=== PATIENT | female | born 1950 | race Hispanic/Latino ===

== ENCOUNTER 2018-01-14 08:01 | Inpatient (IN) | payer OTHER ==
[~2018-01-14] VITALS: Ht 144.8 cm; Wt 117.0 kg
[~2018-01-14 08:01] MED LIST: LISI-617 PO; METF-444 PO; [UNRECOGNIZED DRUG - CODE] PO
[2018-01-14 08:50] LABS: BASOPHILS % (AUTO) 0.5 % (0.0-5.0); EOSINOPHILS % (AUTO) 0.4 % (0.0-8.0); HEMATOCRIT 42.6 % (36-48); LYMPHOCYTES % (AUTO) 16.7 % (21.0-51.0); MEAN CORPUSCULAR HEMOGLOBIN 32.2 pg (27.0-33.0); MEAN CORPUSCULAR HGB CONC 33.4 g/dL (32.0-36.0); MEAN CORPUSCULAR VOLUME 96.5 fL (79-99); MONOCYTES % (AUTO) 6.1 % (3.0-13.0); NEUTROPHILS % (AUTO) 76.3 % (40.0-77.0); PLATELET COUNT (AUTO) 276 K/uL (130-400); RED BLOOD CELL COUNT(AUTO) 4.42 MIL/uL (4.00-5.50); RED CELL DISTRIBUTION WIDTH 13.9 % (11.0-15.5)
[2018-01-14 09:03] LABS: CREATININE 0.7 mg/dL (0.5-1.5); POTASSIUM 4.3 mmol/L (3.5-5.1)
[2018-01-14 09:10] LABS: ALBUMIN 3.7 g/dL (3.5-5.0); BILIRUBIN,TOTAL 0.7 mg/dL (0.2-1.0); TOTAL PROTEIN, SERUM 7.8 g/dL (6.0-8.3)
[2018-01-14] MEDS ORDERED: DICYCLOMINE HCL 10 MG/ML 2ML AMP IM ONE (09:30)
[2018-01-14 09:34] LABS: APPEARANCE,URINE Clear (CLEAR); BILIRUBIN,URINE Negative (NEGATIVE); COLOR,URINE Yellow (YELLOW); GLUCOSE, URINE (UA) Negative (NEGATIVE); KETONES,URINE Negative (NEGATIVE); LEUKOCYTE ESTERASE ,URINE Trace (NEGATIVE); NITRATE,URINE Negative (NEGATIVE); OCCULT BLOOD,URINE Negative (NEGATIVE); PROTEIN,URINE Negative (NEGATIVE)
[2018-01-14 10:02] LABS: BACTERIA,URINE Few /HPF (None Seen); RBC,URINE 0-1 /HPF (0-1); SQUAMOUS EPITHELIAL CELL,UR Rare /HPF (0-2); WBC,URINE 0-1 /HPF (0-1)
[2018-01-14] MEDS ORDERED: FAMOTIDINE/PF 20 MG/2 ML VIAL IV SCH (11:05)
[2018-01-14] MEDS ORDERED: LIDOCAINE HCL 2% VISCOUS 15 ML UDCUP ONE (11:21)
[2018-01-14 11:53] VITALS: BP 158/82
[2018-01-14] MEDS ORDERED: ONDANSETRON HCL 4 MG/2 ML VIAL IV PRN (13:30)
[2018-01-14] MEDS ORDERED: MORPHINE SULFATE 2 MG/ML 1ML SYG IV PRN (13:30)
[2018-01-14] MEDS ORDERED: ACETAMINOPHEN 325 MG TAB PO PRN (13:30)
[2018-01-14] MEDS: SODIUM CHLORIDE 0.9% 1000ML 1,000 ML IV SCH ×2 (13:49→22:52)
[2018-01-14] MEDS: LEVOFLOXACIN 500 MG/D5W 100 ML 100 ML IV SCH (13:49)
[2018-01-14] MEDS ORDERED: METRONIDAZOLE 500 MG TABLET PO SCH (14:00)
[2018-01-14] MEDS ORDERED: ALEN70SO3 PO (14:03)
[2018-01-14 15:34] VITALS: BP 131/70
[2018-01-14] MEDS: KETOROLAC TROMETHAMINE 15MG/ML IM PRN ×2 (17:35→22:59)
[2018-01-14 19:00] VITALS: BP 122/70
[2018-01-14] MEDS: METRONIDAZOLE 500MG/100ML BAG 100 ML IV SCH (22:53)
[2018-01-14] MEDS: FAMOTIDINE/PF 20 MG/2 ML VIAL IV SCH (22:53)
[2018-01-14 23:00] VITALS: BP 126/74
[2018-01-14] MEDS ORDERED: KETOROLAC TROMETHAMINE 15MG/ML IV PRN (23:15)
[2018-01-15 03:00] VITALS: BP 131/71
[2018-01-15 04:34] LABS: HEMATOCRIT 36.7 % (36-48); MEAN CORPUSCULAR HEMOGLOBIN 32.8 pg (27.0-33.0); MEAN CORPUSCULAR HGB CONC 33.9 g/dL (32.0-36.0); MEAN CORPUSCULAR VOLUME 96.7 fL (79-99); PLATELET COUNT (AUTO) 283 K/uL (130-400); RED BLOOD CELL COUNT(AUTO) 3.79 MIL/uL (4.00-5.50); RED CELL DISTRIBUTION WIDTH 13.8 % (11.0-15.5); WHITE BLOOD COUNT (AUTO) 11.1 K/uL (4.8-10.8)
[2018-01-15 04:48] LABS: ALBUMIN 2.9 g/dL (3.5-5.0); BILIRUBIN,TOTAL 0.7 mg/dL (0.2-1.0); CREATININE 0.6 mg/dL (0.5-1.5); MAGNESIUM 1.9 mg/dL (1.80-2.40); PHOSPHORUS 3.4 mg/dL (2.5-4.9); POTASSIUM 3.9 mmol/L (3.5-5.1); TOTAL PROTEIN, SERUM 6.2 g/dL (6.0-8.3)
[2018-01-15] MEDS: METRONIDAZOLE 500MG/100ML BAG 100 ML IV SCH ×3 (05:35→22:23)
[2018-01-15 07:00] VITALS: BP 149/62
[2018-01-15] MEDS: FAMOTIDINE/PF 20 MG/2 ML VIAL IV SCH ×2 (09:38→22:23)
[2018-01-15] MEDS: ENOXAPARIN SODIUM 40 MG/0.4 ML SYRINGE SQ SCH (09:39)
[2018-01-15] MEDS: LISINOPRIL 5 MG TABLET PO SCH (09:39)
[2018-01-15] MEDS: SODIUM CHLORIDE 0.9% 1000ML 1,000 ML IV SCH ×2 (09:39→13:30)
[2018-01-15 11:03] VITALS: BP 121/67
[2018-01-15] MEDS: LEVOFLOXACIN 500 MG/D5W 100 ML 100 ML IV SCH (15:38)
[2018-01-15 16:04] VITALS: BP 117/62
[2018-01-15 19:32] VITALS: BP 126/66
[2018-01-15 23:50] VITALS: BP 126/70
[2018-01-16 03:43] VITALS: BP 112/52
[2018-01-16] MEDS: METRONIDAZOLE 500MG/100ML BAG 100 ML IV SCH (05:14)
[2018-01-16] MEDS: SODIUM CHLORIDE 0.9% 1000ML 1,000 ML IV SCH (05:30)
[2018-01-16 05:44] LABS: BASOPHILS % (AUTO) 0.6 % (0.0-5.0); EOSINOPHILS % (AUTO) 1.8 % (0.0-8.0); HEMATOCRIT 36.6 % (36-48); LYMPHOCYTES % (AUTO) 22.8 % (21.0-51.0); MEAN CORPUSCULAR HEMOGLOBIN 32.3 pg (27.0-33.0); MEAN CORPUSCULAR HGB CONC 33.2 g/dL (32.0-36.0); MEAN CORPUSCULAR VOLUME 97.2 fL (79-99); MONOCYTES % (AUTO) 9.6 % (3.0-13.0); NEUTROPHILS % (AUTO) 65.2 % (40.0-77.0); PLATELET COUNT (AUTO) 246 K/uL (130-400); RED BLOOD CELL COUNT(AUTO) 3.77 MIL/uL (4.00-5.50); WHITE BLOOD COUNT (AUTO) 8.7 K/uL (4.8-10.8)
[2018-01-16 05:49] LABS: CREATININE 0.7 mg/dL (0.5-1.5); POTASSIUM 3.4 mmol/L (3.5-5.1)
[2018-01-16 08:07] VITALS: BP_SYST 114; BP_SYST 133; BP_DIAS 63; BP_DIAS 64
[2018-01-16] MEDS: LISINOPRIL 5 MG TABLET PO SCH (09:49)
[2018-01-16] MEDS: DOCUSATE SODIUM 100 MG CAP PO SCH (09:50)
[2018-01-16] MEDS: ENOXAPARIN SODIUM 40 MG/0.4 ML SYRINGE SQ SCH (09:51)
[2018-01-16 11:14] VITALS: BP 100/56
[2018-01-16] MEDS ORDERED: METRONIDAZOLE 500 MG TABLET ONE (11:20)
[2018-01-16] MEDS: METRONIDAZOLE 500 MG TABLET PO SCH ×2 (11:31→19:24)
[2018-01-16] MEDS ORDERED: FAMOTIDINE 20MG TAB 20 MG TAB ONE (11:59)
[2018-01-16] MEDS: LEVOFLOXACIN 500 MG TABLET PO SCH (12:03)
[2018-01-16 15:00] VITALS: BP 153/73
[2018-01-16 19:19] VITALS: BP 128/62
[2018-01-16] MEDS: FAMOTIDINE 20MG TAB 20 MG TAB PO SCH (22:24)
[2018-01-16 23:30] VITALS: BP 119/60
[2018-01-17 03:48] VITALS: BP 120/66
[2018-01-17 04:40] LABS: BASOPHILS % (AUTO) 0.4 % (0.0-5.0); EOSINOPHILS % (AUTO) 2.3 % (0.0-8.0); HEMATOCRIT 36.2 % (36-48); LYMPHOCYTES % (AUTO) 25.1 % (21.0-51.0); MEAN CORPUSCULAR HEMOGLOBIN 32.9 pg (27.0-33.0); MEAN CORPUSCULAR HGB CONC 33.7 g/dL (32.0-36.0); MEAN CORPUSCULAR VOLUME 97.6 fL (79-99); MONOCYTES % (AUTO) 8.8 % (3.0-13.0); NEUTROPHILS % (AUTO) 63.4 % (40.0-77.0); PLATELET COUNT (AUTO) 274 K/uL (130-400); RED BLOOD CELL COUNT(AUTO) 3.71 MIL/uL (4.00-5.50); RED CELL DISTRIBUTION WIDTH 13.9 % (11.0-15.5); WHITE BLOOD COUNT (AUTO) 7.5 K/uL (4.8-10.8)
[2018-01-17 04:51] LABS: CREATININE 0.8 mg/dL (0.5-1.5); POTASSIUM 3.6 mmol/L (3.5-5.1)
[2018-01-17] MEDS: METRONIDAZOLE 500 MG TABLET PO SCH ×2 (05:13→12:37)
[2018-01-17 07:34] VITALS: BP 115/64
[2018-01-17] MEDS: LISINOPRIL 5 MG TABLET PO SCH (09:08)
[2018-01-17] MEDS: DOCUSATE SODIUM 100 MG CAP PO SCH (09:09)
[2018-01-17] MEDS: FAMOTIDINE 20MG TAB 20 MG TAB PO SCH (09:09)
[2018-01-17] MEDS: ENOXAPARIN SODIUM 40 MG/0.4 ML SYRINGE SQ SCH (09:11)
[2018-01-17] MEDS ORDERED: LACTULOSE 20 GM/30 ML UDCUP PO PRN (11:00)
[2018-01-17 11:21] VITALS: BP 141/66
[2018-01-17] MEDS: LEVOFLOXACIN 500 MG TABLET PO SCH (12:38)
[2018-01-17] MEDS ORDERED: LEVO500T2 PO (15:44)
[2018-01-17 15:53] VITALS: BP 117/56
[2018-01-18] MEDS ORDERED: ALENDRONATE SODIUM 35 MG TAB PO SCH (06:30)
== END 2018-01-17 19:13 | disposition home or self-care (01) | DRG 389 ==
LOC: EDH 08:01 → EDHIP 10:43 → 3AH 11:29
PROVIDERS: ADMIT Hospitalist; ATTEND Hospitalist
PROC: 0D9670Z Drainage of Stomach with Drainage Device, Via Natural or Artificial Opening (ICD-10-PCS; principal; 2018-01-15)
PROC: 3E0234Z Introduction of Serum, Toxoid and Vaccine into Muscle, Percutaneous Approach (ICD-10-PCS; 2018-01-16)
DX: K56.600 Partial intestinal obstruction, unspecified as to cause (principal); Z68.43 Body mass index [BMI] 50.0-59.9, adult; N39.0 Urinary tract infection, site not specified; E66.01 Morbid (severe) obesity due to excess calories; I10 Essential (primary) hypertension; Z82.3 Family history of stroke; Z82.49 Family history of ischemic heart disease and other diseases of the circulatory system; Z83.3 Family history of diabetes mellitus; Z90.710 Acquired absence of both cervix and uterus; Z90.49 Acquired absence of other specified parts of digestive tract; Z23 Encounter for immunization; Z88.8 Allergy status to other drugs, medicaments and biological substances; Z91.041 Radiographic dye allergy status; Z80.0 Family history of malignant neoplasm of digestive organs
CPT/HCPCS: 36415; 74021; 74250; 80048; 80053; 81001; 83690; 83735; 84100; 85025; 85027; G0008; J0500; J1650; J1885; J1956; J2405; J3490; J7030; Q2038

== ENCOUNTER 2018-08-16 08:25 | Day surgery (SDC) | payer OTHER ==
[~2018-08-16] VITALS: Ht 152.4 cm; Wt 116.1 kg
[2018-08-16] VITALS (7 sets, daily range): BP systolic 99–130; BP diastolic 47–60
[~2018-08-16 08:25] MED LIST changes: +CALC-268 PO; +DOCU100C33 PO; -METF-444 PO; +MULT1CAP32 PO; +SODIUM CHLORIDE 0.9% 1000ML 1,000 ML IV ONE; -[UNRECOGNIZED DRUG - CODE] PO
[2018-08-16] MEDS ORDERED: PROPOFOL 10 MG/ML 20ML VIAL IV ONE (11:11)
== END 2018-08-16 12:17 | disposition home or self-care (01) ==
LOC: DAH 08:25 → ENDO 08:25
PROVIDERS: ATTEND Internal Medicine
DX: K29.40 Chronic atrophic gastritis without bleeding (principal); K21.0 Gastro-esophageal reflux disease with esophagitis; K31.7 Polyp of stomach and duodenum; K31.89 Other diseases of stomach and duodenum; R12 Heartburn; M19.90 Unspecified osteoarthritis, unspecified site; I10 Essential (primary) hypertension; E11.9 Type 2 diabetes mellitus without complications; E66.9 Obesity, unspecified; F15.90 Other stimulant use, unspecified, uncomplicated; Z88.3 Allergy status to other anti-infective agents; Z88.8 Allergy status to other drugs, medicaments and biological substances; Z90.49 Acquired absence of other specified parts of digestive tract; Z79.899 Other long term (current) drug therapy; Z90.710 Acquired absence of both cervix and uterus; Z82.49 Family history of ischemic heart disease and other diseases of the circulatory system; Z83.3 Family history of diabetes mellitus; Z82.3 Family history of stroke
CPT/HCPCS: 43239; 82948; 88305; J2704; J7030

== ENCOUNTER 2019-12-06 19:15 | Emergency (ER) | payer OTHER ==
[~2019-12-06 19:15] MED LIST changes: -SODIUM CHLORIDE 0.9% 1000ML 1,000 ML IV ONE
[2019-12-06 19:39] LABS: APPEARANCE,URINE Clear (CLEAR); BILIRUBIN,URINE Negative (NEGATIVE); COLOR,URINE Yellow (YELLOW); GLUCOSE, URINE (UA) Negative (NEGATIVE); KETONES,URINE 15 mg/dL (NEGATIVE); LEUKOCYTE ESTERASE ,URINE Moderate (NEGATIVE); NITRATE,URINE Negative (NEGATIVE); OCCULT BLOOD,URINE Negative (NEGATIVE); PROTEIN,URINE Negative (NEGATIVE)
[2019-12-06 19:52] LABS: BASOPHILS % (AUTO) 0.2 % (0.0-5.0); EOSINOPHILS % (AUTO) 0.4 % (0.0-8.0); HEMATOCRIT 38.6 % (36-48); LYMPHOCYTES % (AUTO) 17.7 % (21.0-51.0); MEAN CORPUSCULAR HEMOGLOBIN 32.5 pg (27.0-33.0); MEAN CORPUSCULAR HGB CONC 33.2 g/dL (32.0-36.0); MONOCYTES % (AUTO) 5.9 % (3.0-13.0); NEUTROPHILS % (AUTO) 75.4 % (40.0-77.0); PLATELET COUNT (AUTO) 295 K/uL (130-400); RED BLOOD CELL COUNT(AUTO) 3.94 MIL/uL (4.00-5.50); RED CELL DISTRIBUTION WIDTH 12.8 % (11.0-15.5); WHITE BLOOD COUNT (AUTO) 10.3 K/uL (4.8-10.8)
[2019-12-06 19:57] LABS: BACTERIA,URINE Few /HPF (None Seen); MUCUS,URINE Rare LPF (None Seen); RBC,URINE 0-1 /HPF (0-1); SQUAMOUS EPITHELIAL CELL,UR Few /HPF (0-2)
[2019-12-06] MEDS ORDERED: ONDANSETRON HCL 4 MG/2 ML VIAL ONE (19:58)
[2019-12-06 20:08] LABS: INR 0.93 (0.85-1.15); PARTIAL THROMBOPLASTIN TIME 25.5 SEC (26.3-35.5); PROTHROMBIN TIME 10.1 SEC (9.6-11.6)
[2019-12-06] MEDS ORDERED: METOCLOPRAMIDE 10 MG/2 ML VIAL ONE (20:08)
[2019-12-06] MEDS ORDERED: KETOROLAC TROMETHAMINE 30MG/ML ONE (20:08)
[2019-12-06 20:09] LABS: ALANINE AMINOTRANSFERASE 21 U/L (12-78); ALBUMIN 3.5 g/dL (3.5-5.0); ASPARTATE AMINOTRANSFERASE 19 U/L (10-37); BILIRUBIN,TOTAL 0.6 mg/dL (0.2-1.0); CARBON DIOXIDE 27 mmol/L (21-32); CHLORIDE 106 mmol/L (101-111); CREATININE 0.7 mg/dL (0.5-1.5); GLOMERULAR FILTR. RATE CALC 88 mL/min (>60); GLUCOSE,RANDOM 128 mg/dL (70-105); POTASSIUM 3.7 mmol/L (3.5-5.1); SODIUM SERUM 143 mmol/L (136-145); TOTAL PROTEIN, SERUM 7.3 g/dL (6.0-8.3); UREA NITROGEN, BLOOD 14 mg/dL (7-18)
[2019-12-06] MEDS ORDERED: SODIUM CHLORIDE 0.9% 50 ML IV ONE (20:09)
[2019-12-06 20:16] LABS: LIPASE < 50 U/L (114-286)
[2019-12-06] MEDS ORDERED: MORPHINE SULFATE 4 MG/1ML SYG ONE (20:53)
[2019-12-06] MEDS ORDERED: LIDOCAINE HCL 2% JELLY 5 ML ONE (20:53)
[2019-12-06] MEDS ORDERED: SODIUM CHLORIDE 0.9% 1000ML 1,000 ML IV ONE (20:56)
== END 2019-12-07 01:25 | disposition short-term general hospital (02) ==
LOC: EDH 19:15
DX: K56.609 Unspecified intestinal obstruction, unspecified as to partial versus complete obstruction (principal); K45.8 Other specified abdominal hernia without obstruction or gangrene; I10 Essential (primary) hypertension; Z88.8 Allergy status to other drugs, medicaments and biological substances; Z91.041 Radiographic dye allergy status
CPT/HCPCS: 36415; 71045; 74176; 80053; 81001; 83605; 83690; 84484; 85025; 85610; 85730; 87088; 93005; 96361 ×2; 96374; 96375; 99285; J1885; J2270; J2405; J2765; J7030

== ENCOUNTER 2022-09-11 13:57 | Observation (INO) | payer OTHER ==
[~2022-09-11] VITALS: Ht 149.9 cm; Wt 93.9 kg
[~2022-09-11 13:57] MED LIST changes: -LISI-617 PO; +LISI5TAB21 PO
[2022-09-11 14:43] LABS: BASOPHILS % (AUTO) 0.2 % (0.0-5.0); EOSINOPHILS % (AUTO) 0.2 % (0.0-8.0); HEMATOCRIT 39.7 % (36-48); LYMPHOCYTES % (AUTO) 25.6 % (21.0-51.0); MEAN CORPUSCULAR HGB CONC 32.5 g/dL (32.0-36.0); MEAN CORPUSCULAR VOLUME 98.5 fL (79-99); MONOCYTES % (AUTO) 7.4 % (3.0-13.0); NEUTROPHILS % (AUTO) 66.4 % (40.0-77.0); PLATELET COUNT (AUTO) 297 K/uL (130-400); RED BLOOD CELL COUNT(AUTO) 4.03 MIL/uL (4.00-5.50); RED CELL DISTRIBUTION WIDTH 13.2 % (11.0-15.5); WHITE BLOOD COUNT (AUTO) 8.7 K/uL (4.8-10.8)
[2022-09-11 15:08] LABS: CARBON DIOXIDE 26 mmol/L (21-32); CHLORIDE 105 mmol/L (101-111); CREATININE 0.7 mg/dL (0.5-1.5); GLOMERULAR FILTR. RATE CALC 92 mL/min (>90); GLUCOSE,RANDOM 100 mg/dL (70-105); POTASSIUM 3.8 mmol/L (3.5-5.1); SODIUM SERUM 138 mmol/L (136-145); UREA NITROGEN, BLOOD 17 mg/dL (7-18)
[2022-09-11 15:12] LABS: ALANINE AMINOTRANSFERASE 28 U/L (12-78); ALBUMIN 3.5 g/dL (3.5-5.0); ASPARTATE AMINOTRANSFERASE 10 U/L (10-37); LIPASE < 50 U/L (114-286)
[2022-09-11 15:25] LABS: APPEARANCE,URINE CLEAR (CLEAR); BILIRUBIN,URINE NEGATIVE (NEGATIVE); COLOR,URINE YELLOW (YELLOW); GLUCOSE, URINE (UA) NEGATIVE (NEGATIVE); KETONES,URINE NEGATIVE (NEGATIVE); LEUKOCYTE ESTERASE ,URINE NEGATIVE Leu/uL (NEGATIVE); NITRATE,URINE NEGATIVE (NEGATIVE); OCCULT BLOOD,URINE NEGATIVE (NEGATIVE); PH,URINE 5.5 (5.0-8.0); PROTEIN,URINE 30 mg/dL (NEGATIVE)
[2022-09-11 15:28] LABS: BACTERIA,URINE FEW /HPF (None Seen); MUCUS,URINE MANY LPF (None Seen); RBC,URINE 0-1 /HPF (0-1); SQUAMOUS EPITHELIAL CELL,UR MANY /HPF (0-2)
[2022-09-11] MEDS ORDERED: 0.9%NACL 1000ML 1,000 ML IV ONE (15:30)
[2022-09-11 17:05] LABS: LIPASE < 50 U/L (114-286)
[2022-09-11] MEDS ORDERED: LACTATED RINGERS 1000ML 1,000 ML IV ONE (18:30)
[2022-09-11] MEDS ORDERED: LACTULOSE 20 GM/30 ML UDCUP PO PRN (18:30)
[2022-09-11] MEDS ORDERED: DOCUSATE SODIUM 100 MG CAP PO PRN (18:30)
[2022-09-11] MEDS ORDERED: METOCLOPRAMIDE 10 MG/2 ML VIAL IVP ONE (18:30)
[2022-09-11] MEDS ORDERED: ONDANSETRON 4MG INJ IVP PRN (18:30)
[2022-09-11] MEDS ORDERED: HYDRALAZINE 20MG/ML VIAL IV PRN (18:30)
[2022-09-11] MEDS ORDERED: TEMAZEPAM 15 MG CAPSULE PO PRN (18:30)
[2022-09-11] MEDS ORDERED: ACETAMINOPHEN 650 MG SUPPOSITORY RC PRN (18:30)
[2022-09-11] MEDS ORDERED: LABETALOL 20MG SYG IV PRN (18:30)
[2022-09-11] MEDS ORDERED: ACETAMINOPHEN 325 MG TAB PO PRN (18:30)
[2022-09-11] MEDS ORDERED: CLONIDINE HCL 0.1 MG TABLET PO PRN (18:30)
[2022-09-11] MEDS ORDERED: DIATR MEGLU/DIATRIZOATE SODIUM 30 ML BOTTLE ONE (18:42)
[2022-09-11] MEDS: LACTATED RINGERS 1000ML 1,000 ML IV SCH (19:10)
[2022-09-12] VITALS (7 sets, daily range): BP systolic 111–147; BP diastolic 61–75
[2022-09-12] MEDS ORDERED: DEXTROSE 50%-WATER 50 ML DISP.SYRIN IV PRN (05:30)
[2022-09-12] MEDS ORDERED: GLUCAGON 1MG KIT 1 MG ML IM PRN (05:30)
[2022-09-12] MEDS ORDERED: MAGNESIUM 2GM PREMIX 50ML 50 ML IV PRN (05:30)
[2022-09-12 05:39] LABS: BASOPHILS % (AUTO) 0.3 % (0.0-5.0); HEMATOCRIT 34.4 % (36-48); LYMPHOCYTES % (AUTO) 31.5 % (21.0-51.0); MEAN CORPUSCULAR HEMOGLOBIN 32.1 pg (27.0-33.0); MEAN CORPUSCULAR HGB CONC 32.6 g/dL (32.0-36.0); MEAN CORPUSCULAR VOLUME 98.6 fL (79-99); MONOCYTES % (AUTO) 8.7 % (3.0-13.0); NEUTROPHILS % (AUTO) 58.2 % (40.0-77.0); PLATELET COUNT (AUTO) 236 K/uL (130-400); RED BLOOD CELL COUNT(AUTO) 3.49 MIL/uL (4.00-5.50); RED CELL DISTRIBUTION WIDTH 13.2 % (11.0-15.5); WHITE BLOOD COUNT (AUTO) 7.7 K/uL (4.8-10.8)
[2022-09-12 05:58] LABS: CREATININE 0.5 mg/dL (0.5-1.5); MAGNESIUM 1.7 mg/dL (1.80-2.40); PHOSPHORUS 3.3 mg/dL (2.5-4.9); POTASSIUM 3.2 mmol/L (3.5-5.1)
[2022-09-12] MEDS: INSULIN HUMULIN R 100 UNIT/ML 3ML SQ SCH ×4 (06:00→19:57)
[2022-09-12] MEDS: POTASSIUM CHLORIDE 20MEQ/100ML 100 ML IV PRN ×2 (06:25→08:11)
[2022-09-12] MEDS: PANTOPRAZOLE 40 MG/VIAL IVP SCH ×2 (08:10→19:16)
[2022-09-12] MEDS: LACTATED RINGERS 1000ML 1,000 ML IV SCH ×2 (08:12→16:17)
[2022-09-12] MEDS ORDERED: L.AC1CAP6 PO (15:55)
[2022-09-12] MEDS ORDERED: LISI5TAB21 PO (15:55)
[2022-09-12] MEDS ORDERED: DOCU-116 PO (15:55)
[2022-09-12] MEDS ORDERED: MECO10005 PO (15:55)
[2022-09-12] MEDS ORDERED: CHOL200012 PO (15:55)
[2022-09-13 04:26] VITALS: BP 107/58
[2022-09-13] MEDS: INSULIN HUMULIN R 100 UNIT/ML 3ML SQ SCH (05:39)
[2022-09-13 07:10] LABS: BASOPHILS % (AUTO) 0.1 % (0.0-5.0); EOSINOPHILS % (AUTO) 0.7 % (0.0-8.0); HEMATOCRIT 37.7 % (36-48); LYMPHOCYTES % (AUTO) 25.6 % (21.0-51.0); MEAN CORPUSCULAR HEMOGLOBIN 31.8 pg (27.0-33.0); MEAN CORPUSCULAR HGB CONC 32.1 g/dL (32.0-36.0); MEAN CORPUSCULAR VOLUME 99.2 fL (79-99); MONOCYTES % (AUTO) 7.1 % (3.0-13.0); NEUTROPHILS % (AUTO) 66.1 % (40.0-77.0); PLATELET COUNT (AUTO) 267 K/uL (130-400); RED CELL DISTRIBUTION WIDTH 13.3 % (11.0-15.5); WHITE BLOOD COUNT (AUTO) 8.3 K/uL (4.8-10.8)
[2022-09-13 07:31] LABS: ALBUMIN 3.3 g/dL (3.5-5.0); CREATININE 0.6 mg/dL (0.5-1.5); POTASSIUM 3.5 mmol/L (3.5-5.1); TOTAL PROTEIN, SERUM 6.5 g/dL (6.0-8.3)
[2022-09-13 08:00] VITALS: BP 106/54
[2022-09-13] MEDS ORDERED: Docusate Sodium 100 Mg Cap PO (08:41)
[2022-09-13] MEDS ORDERED: LISINOPRIL 5 MG TABLET PO SCH (09:00)
[2022-09-13] MEDS ORDERED: DOCUSATE SODIUM 100 MG CAP PO SCH (09:00)
[2022-09-13] MEDS ORDERED: ACIDOPH PO SCH (09:00)
[2022-09-13] MEDS ORDERED: VITAMIN D3 50 MCG PO SCH (09:00)
[2022-09-13] MEDS ORDERED: PARACASEI B LACTIS PO SCH (09:00)
[2022-09-13] MEDS ORDERED: CYANOCOBALAMIN (VITAMIN B-12) 1,000 MCG TABLET PO SCH (09:00)
[2022-09-13] MEDS ORDERED: NON-FORMULARY MEDICATION 1 EACH (Mecobalamin (B12 Active) 1,000 MCG) PO SCH (09:00)
[2022-09-13] MEDS ORDERED: KCL 20 MEQ ERTAB PO ONE (09:45)
[2022-09-13] MEDS: PANTOPRAZOLE 40 MG/VIAL IVP SCH (09:49)
== END 2022-09-13 11:00 | disposition home or self-care (01) ==
LOC: EDH 13:57 → EDHIP 18:25 → 3DH 09-12 01:10
PROVIDERS: ADMIT Internal Medicine; ATTEND Internal Medicine
DX: K56.609 Unspecified intestinal obstruction, unspecified as to partial versus complete obstruction (principal); K43.9 Ventral hernia without obstruction or gangrene; I10 Essential (primary) hypertension; K81.9 Cholecystitis, unspecified; M81.0 Age-related osteoporosis without current pathological fracture; Z90.710 Acquired absence of both cervix and uterus; Z90.49 Acquired absence of other specified parts of digestive tract; Z79.899 Other long term (current) drug therapy
CPT/HCPCS: 96374; 96361 ×2; 99285; 84484; 80053 ×2; 83690 ×2; 85025 ×3; 83605; 81001; 36415 ×3; 74018; 74176; 93005; 96376 ×2; 96375; 83735 ×2; 84100; 80048; 82948 ×5; 97161; 97039; 97116; G0378 ×40; J2765; J3475; J3480 ×2; C9113 ×3; Q9963

== ENCOUNTER 2022-11-24 08:37 | Observation (INO) | payer OTHER ==
[2022-11-20 09:52] VITALS: BP 176/87; PULSE 82; RESP 18
[2022-11-20 10:08] LABS: BASOPHILS # (AUTO) 0.02 K/uL (0.00-0.20); BASOPHILS % (AUTO) 0.3 % (0.0-5.0); EOSINOPHILS # (AUTO) 0.07 K/uL (0.00-0.70); EOSINOPHILS % (AUTO) 1.1 % (0.0-8.0); HEMATOCRIT 35.9 % (36-48); IMMATURE GRANULOCYTE ABSOLUTE 0.02 K/uL (0-1); LYMPHOCYTES % (AUTO) 32.3 % (21.0-51.0); MEAN CORPUSCULAR HEMOGLOBIN 32.4 pg (27.0-33.0); MEAN CORPUSCULAR VOLUME 101.1 fL (79-99); MONOCYTES # (AUTO) 0.4 K/uL (0.1-1.0); NEUTROPHILS # (AUTO) 3.8 K/uL (1.8-7.7); PLATELET COUNT (AUTO) 281 K/uL (130-400); RED BLOOD CELL COUNT(AUTO) 3.55 MIL/uL (4.00-5.50); RED CELL DISTRIBUTION WIDTH 12.8 % (11.0-15.5); WHITE BLOOD COUNT (AUTO) 6.3 K/uL (4.8-10.8)
[2022-11-20 10:13] LABS: CREATININE 0.7 mg/dL (0.5-1.5); POTASSIUM 4.1 mmol/L (3.5-5.1)
[2022-11-20 10:23] LABS: INR < 0.93 (0.85-1.15); PROTHROMBIN TIME 10.7 SEC (9.6-11.6)
[2022-11-20 10:24] LABS: PARTIAL THROMBOPLASTIN TIME 27.9 SEC (26.3-35.5)
[2022-11-24] VITALS (23 sets, daily range): BP systolic 110–143; BP diastolic 59–83; PULSE 69–103; RESP 16–27; O2SAT 96
[~2022-11-24] VITALS: Ht 149.9 cm; Wt 90.2 kg
[~2022-11-24 08:37] MED LIST changes: +CA C1TAB97 PO; -CALC-268 PO; +CHOL200012 PO; +DOCU-116 PO; -DOCU100C33 PO; +L.AC1CAP6 PO; -LISI5TAB21 PO; +MECO10005 PO; -MULT1CAP32 PO
[2022-11-24] MEDS ORDERED: CEFAZOLIN SODIUM 2 GM VIAL ONE (09:04)
[2022-11-24] MEDS ORDERED: LACTATED RINGERS 1000ML 1,000 ML IV ONE (09:05)
[2022-11-24] MEDS ORDERED: BUPIVACAINE/PF 0.25% 30ML VIAL IJ ONE (09:09)
[2022-11-24] MEDS ORDERED: ROCURONIUM 10MG/1ML SYR 10 MG/ML ML ONE ×3 (09:16→14:52)
[2022-11-24] MEDS ORDERED: MIDAZOLAM HCL 1 MG/ML 2ML VIAL ONE (09:16)
[2022-11-24] MEDS ORDERED: PROPOFOL 10 MG/ML 20ML VIAL IV ONE (09:16)
[2022-11-24] MEDS ORDERED: FENTANYL CITRATE PF 50 MCG/1 ML 2ML VIAL ONE (09:16)
[2022-11-24] MEDS ORDERED: LIDOCAINE PF 100MG/5ML (2%) SYRINGE 5ML ONE (09:16)
[2022-11-24] MEDS ORDERED: ROPIVACAINE 0.5% 5MG/ML 30ML IJ ONE (13:29)
[2022-11-24] MEDS ORDERED: ONDANSETRON 4MG INJ ONE (13:54)
[2022-11-24] MEDS ORDERED: DEXAMETHASONE SOD PHOSPHATE 4 MG/ML 1ML VIAL ONE (13:54)
[2022-11-24] MEDS ORDERED: HYDROMORPHONE 1 MG INJ ONE (14:56)
[2022-11-24] MEDS ORDERED: SUGAMMADEX SODIUM 200 MG/2 ML VIAL IV ONE (15:10)
[2022-11-24] MEDS ORDERED: HYDROMORPHONE 0.5 MG SYG (0.5MG/0.5ML) IVP PRN (17:30)
[2022-11-24] MEDS ORDERED: PROMETHAZINE HCL 25 MG/ML 1ML AMPULE IM PRN (17:30)
[2022-11-24] MEDS: LACTATED RINGERS 1000ML 1,000 ML IV SCH ×2 (18:33→23:31)
[2022-11-24] MEDS: GABAPENTIN 100 MG CAPSULE PO SCH (21:36)
[2022-11-24] MEDS: DOCUSATE SODIUM 100 MG CAP PO SCH (21:36)
[2022-11-24] MEDS: HEPARIN 5,000 UNIT VIAL SQ SCH (21:37)
[2022-11-25] VITALS: BP 121/71; PULSE 98; RESP 19
[2022-11-25 04:00] VITALS: BP 141/73; PULSE 105; RESP 19
[2022-11-25] MEDS: TRAMADOL HCL 50 MG TABLET PO PRN ×2 (06:08→10:07)
[2022-11-25] MEDS: DOCUSATE SODIUM 100 MG CAP PO SCH ×2 (07:59→19:49)
[2022-11-25] MEDS: GABAPENTIN 100 MG CAPSULE PO SCH ×3 (07:59→19:49)
[2022-11-25 08:00] VITALS: BP 117/70; PULSE 91; RESP 18; O2SAT 96
[2022-11-25] MEDS: HEPARIN 5,000 UNIT VIAL SQ SCH ×2 (08:05→19:54)
[2022-11-25] MEDS: CALCIUM CITRATE PLUS PO SCH (08:05)
[2022-11-25] MEDS: Mecobalamin (B12 Active) 1,000 MCG PO SCH (08:06)
[2022-11-25] MEDS: L.acidoph & Paracasei,B.lactis (Probiotic) 1 EACH PO SCH (08:06)
[2022-11-25] MEDS ORDERED: PHARMACY COMMUNICATION MISC SCH (09:00)
[2022-11-25] MEDS ORDERED: FAMOTIDINE 20MG VIAL IV ONE (09:00)
[2022-11-25] MEDS: LACTATED RINGERS 1000ML 1,000 ML IV SCH ×3 (09:30→23:30)
[2022-11-25] MEDS ORDERED: ACETAMINOPHEN 325 MG TAB PO PRN (11:30)
[2022-11-25 12:00] VITALS: BP 118/65; PULSE 79; RESP 19
[2022-11-25] MEDS: KETOROLAC 15MG/ML VIAL (15MG/ML) IV SCH ×3 (12:06→23:29)
[2022-11-25 16:00] VITALS: BP 112/65; PULSE 77; RESP 17
[2022-11-25 20:00] VITALS: BP 124/65; PULSE 71; RESP 20; O2SAT 96
[2022-11-26] VITALS (7 sets, daily range): BP systolic 104–133; BP diastolic 48–97; PULSE 71–97; RESP 17–20; O2SAT 96–99
[2022-11-26] MEDS: KETOROLAC 15MG/ML VIAL (15MG/ML) IV SCH ×3 (05:17→18:32)
[2022-11-26] MEDS: DOCUSATE SODIUM 100 MG CAP PO SCH ×2 (08:27→20:11)
[2022-11-26] MEDS: GABAPENTIN 100 MG CAPSULE PO SCH ×3 (08:28→20:11)
[2022-11-26] MEDS: HEPARIN 5,000 UNIT VIAL SQ SCH ×2 (08:42→20:12)
[2022-11-26] MEDS: CALCIUM CITRATE PLUS PO SCH (08:43)
[2022-11-26] MEDS: L.acidoph & Paracasei,B.lactis (Probiotic) 1 EACH PO SCH (08:47)
[2022-11-26] MEDS: Mecobalamin (B12 Active) 1,000 MCG PO SCH (08:47)
[2022-11-26] MEDS: LACTATED RINGERS 1000ML 1,000 ML IV SCH (09:30)
[2022-11-27] VITALS (8 sets, daily range): BP systolic 103–139; BP diastolic 59–77; PULSE 74–97; RESP 16–20; O2SAT 99
[2022-11-27] MEDS: DOCUSATE SODIUM 100 MG CAP PO SCH ×2 (09:00→21:00)
[2022-11-27] MEDS: CALCIUM CITRATE PLUS PO SCH (09:00)
[2022-11-27] MEDS: Mecobalamin (B12 Active) 1,000 MCG PO SCH (09:00)
[2022-11-27] MEDS: L.acidoph & Paracasei,B.lactis (Probiotic) 1 EACH PO SCH (09:00)
[2022-11-27] MEDS: GABAPENTIN 100 MG CAPSULE PO SCH ×3 (10:24→19:28)
[2022-11-27] MEDS: HEPARIN 5,000 UNIT VIAL SQ SCH ×2 (10:37→19:29)
[2022-11-27] MEDS ORDERED: TRAM100T40 PO (13:17)
[2022-11-27] MEDS ORDERED: GABA-529 PO (13:19)
[2022-11-27] MEDS ORDERED: DOCU-116 PO (13:19)
[2022-11-28 04:00] VITALS: BP 129/72; PULSE 80; RESP 18
[2022-11-28 08:00] VITALS: BP 133/69; PULSE 79; RESP 18; O2SAT 100
[2022-11-28] MEDS: GABAPENTIN 100 MG CAPSULE PO SCH (08:31)
[2022-11-28] MEDS: HEPARIN 5,000 UNIT VIAL SQ SCH (08:35)
[2022-11-28] MEDS: DOCUSATE SODIUM 100 MG CAP PO SCH (08:35)
[2022-11-28] MEDS: L.acidoph & Paracasei,B.lactis (Probiotic) 1 EACH PO SCH (08:35)
[2022-11-28] MEDS: CALCIUM CITRATE PLUS PO SCH (08:35)
[2022-11-28] MEDS: Mecobalamin (B12 Active) 1,000 MCG PO SCH (08:36)
== END 2022-11-28 10:30 | disposition home or self-care (01) ==
LOC: DAH 08:37 → INTOOBSV 08:38 → 4AH 08:38 → DAH 08:38
PROVIDERS: ADMIT Surgery; ATTEND Surgery
DX: K43.2 Incisional hernia without obstruction or gangrene (principal); K40.90 Unilateral inguinal hernia, without obstruction or gangrene, not specified as recurrent; K66.0 Peritoneal adhesions (postprocedural) (postinfection); E66.01 Morbid (severe) obesity due to excess calories
CPT/HCPCS: 36415; 80048; 85025; 85610; 85730; 93005; 96372; 96374; 96375; 96376; A4344; A4606; G0378; J1100; J1170; J1644; J1885; J2001; J2250; J2405; J2704; J2795; J3010; J3490; J7120; A4215; A4221; A4222; A4223; A4600; A4649; A4663; A4930; A5113; A6260; J0690

== ENCOUNTER → 2023-03-12 | Outpatient (CLI) | payer OTHER ==
[~2023-03-12] MED LIST changes: +GABA-529 PO; +TRAM100T40 PO
== END | disposition home or self-care (01) ==
LOC: RAH 10:00
PROVIDERS: ATTEND Surgery
DX: K76.0 Fatty (change of) liver, not elsewhere classified (principal); R10.9 Unspecified abdominal pain; I25.10 Atherosclerotic heart disease of native coronary artery without angina pectoris; M47.815 Spondylosis without myelopathy or radiculopathy, thoracolumbar region
CPT/HCPCS: 74176

== ENCOUNTER 2025-03-03 04:08 | Emergency (ER) | payer OTHER ==
[~2025-03-03] VITALS: Ht 149.9 cm; Wt 99.8 kg
--- NOTE | 2025-03-03 04:57 | ERN ---
ED Note History of Present Illness Stated Complaint: C/O PAIN TO RT ARM AFTER FALLING ON IT Chief Complaint: Mechanical Fall Time Seen by MD: 04:29 Dictation: This is a 74-year-old female who presented to the emergency room complaining of right arm pain after she fell at home. Patient stated that she tripped on something and basically fell on heel the right forearm lateral aspect. She has had surgery in the past and she wanted to make sure that there was no recurrent fracture. Patient did not hit her head. No loss of consciousness she is not on any blood thinners. No lacerations or ecchymosis the pain is mostly on the extensor aspect of the right forearm all the way from elbow to the wrist area. Patient is able to move her arm in all directions at her baseline Temperature 98 pulse 85 respirations 20 blood pressure 127/78 with a pulse oximetry of 96% on room air Patient's son was at bedside. Patient has no underlying comorbidities and does not take any medications Allergies: Coded Allergies: iodine (Unverified Allergy, Unknown, 09/06/16) prednisone (Unverified Allergy, Unknown, 09/06/16) Home Meds Active Scripts Docusate Sodium (Colace) 100 Mg Capsule, 100 MG PO BID, #30 CAP 0 Refills Prov:CHANI GALAVIZ MD 11/27/22 Gabapentin (Gabapentin) 100 Mg Capsule, 100 MG PO TID, #21 CAP 0 Refills Prov:CHANI GALAVIZ MD 11/27/22 Tramadol HCl (Tramadol HCl) 100 Mg Tablet, 100 MG PO Q6HPRN PRN for PAIN, #28 TAB 0 Refills Prov:CHANI GALAVIZ MD 11/27/22 Reported Medications Ca Citrate/Mgox/Vit D3/B6/Min (Calcium Citrate Plus Tablet) 1 Each Tablet, 1 EACH PO AM, TAB 11/20/22 Mecobalamin (B12 Active) 1,000 Mcg Tab.chew, 1000 MCG PO DAILY, TAB.CHEW 09/12/22 Cholecalciferol (Vitamin D3) (D3-2000) 50 Mcg Capsule, 50 MCG PO DAILY, CAP 09/12/22 L.acidoph & Paracasei,B.lactis (Probiotic) 1 Each Capsule, 1 EACH PO DAILY, CAP 09/12/22 Past Medical History Past Medical History: No Pertinent History Surgical History: Other Surgical History Other: KNEE SX, RT ARM SX Family History: Negative Social History: Negative History: Not Applicable RN Note Reviewed/Agreed w/PFSH: Yes Review of System Dictation Constitutional: Negative for fever,chills, and weight loss Eyes: Negative for injury, pain,redness, and discharge ENT: Negative for injury,pain or swelling Cardiovascular: Negative for chest pain, palpitations, and edema Respiratory: Negative for shortness of breath, cough, and wheezing, Abdomen/GI: Negative for abdominal pain, nausea, vomiting, diarrhea, and constipation Back: Negative for injury and pain : Negative for injury, bleeding and discharge MS/Extremity: Positive for injury and pain in the right forearm Skin: Negative for rash, and discoloration Neuro: Negative for headache, weakness, numbness, tingling, and seizure Psych: Negative for suicide ideation, homicidal ideation, and hallucinations Initial Vital Sign VS Vital Signs Date Time Temp Pulse Resp B/P (MAP) Pulse Ox O2 Delivery O2 Flow Rate FiO2 03/03/25 04:11 98.1 85 20 127/78 96 Room Air 03/03/25 06:41 0 21 Physical Exam Dictation General: awake, alert, NAD morbidly obese female Head/Face: Normocephalic, atraumatic Eyes: PERRL, EOMI, vision at baseline ENT: oral cavity clear, TMs clear, no signs of infection Neck: Trachea midline, supple, no nuchal rigidity Cardiovascular: RRR, normal S1/S2, No MRGs, no JVD Respiratory: CTAB, no respiratory distress, No rales or wheezes Abdomen: Soft, non-tender, non-distended, normal bowel sounds, no guarding or rebound. Skin: Warm, dry, normal turgor, no rash MS/Extremity: Pulses equal, no cyanosis, neurovascular intact, FROM no ecchymosis lacerations or bony deformities no open wounds. Able to move her arm without any difficulty. Neuro: COAx4, GCS 15, strength 5/5, CN 2-12 intact, normal cerebellar exam, normal gait, Psych: Normal behavior, mood, and affect normal Extremities-trace edema without any palpable cords, Homans sign is negative Results (Laboratory/Radiology) Laboratory/Radiology Laboratory Tests Test 03/03/25 06:01 White Blood Count 9.3 K/uL (4.8-10.8) Red Blood Count 3.79 MIL/uL (4.00-5.50) L Hemoglobin 11.9 g/dL (12.0-16.0) L Hematocrit 37.2 % (36-48) Mean Corpuscular Volume 98.2 fL (79-99) Mean Corpuscular Hemoglobin 31.4 pg (27.0-33.0) Mean Corpuscular Hemoglobin Concent 32.0 g/dL (32.0-36.0) Red Cell Distribution Width 14.1 % (11.0-15.5) Platelet Count 248 K/uL (130-400) Mean Platelet Volume 9.3 fL (7.5-10.5) Immature Granulocyte % (Auto) 0.6 % (0-1) Neutrophils (%) (Auto) 72.8 % (40.0-77.0) Lymphocytes (%) (Auto) 17.4 % (21.0-51.0) L Monocytes (%) (Auto) 8.1 % (3.0-13.0) Eosinophils (%) (Auto) 1.0 % (0.0-8.0) Basophils (%) (Auto) 0.1 % (0.0-5.0) Neutrophils # (Auto) 6.7 K/uL (1.8-7.7) Lymphocytes # (Auto) 1.6 K/uL (1.0-4.8) Monocytes # (Auto) 0.8 K/uL (0.1-1.0) Eosinophils # (Auto) 0.09 K/uL (0.00-0.70) Basophils # (Auto) 0.01 K/uL (0.00-0.20) Absolute Immature Granulocyte (auto 0.06 K/uL (0-1) Nucleated Red Blood Cells 0.0 % (0.0-0.19) Sodium Level 141 mmol/L (136-145) Potassium Level 4.9 mmol/L (3.5-5.1) Chloride Level 106 mmol/L (101-111) Carbon Dioxide Level 28 mmol/L (21-32) Blood Urea Nitrogen 16 mg/dL (7-18) Creatinine 0.5 mg/dL (0.5-1.0) Glomerular Filtration Rate Calc 98 mL/min (>90) Random Glucose 111 mg/dL (70-105) H Total Calcium 8.7 mg/dL (8.5-10.1) Labs Reviewed?: Yes X-RAY Comment: REASON: FALL ORDERING PHYSICIAN: ARVIN HARRY MD PROCEDURE: ELB3VW RT - ELBOW COMP 3+VWS RT EXAM: CR Right Elbow, 3 views CLINICAL HISTORY: Fall. COMPARISON: None provided. FINDINGS: No acute fracture or aggressive appearing osseous lesion. Internally fixed old healed fractures around the distal humerus, proximal radius, and proximal ulna with fixating plates and screws in place. Radial head replacement implant in place. Mild osteopenia. Moderate osteoarthritis. Mild diffuse soft tissue swelling. No joint effusion is evident. IMPRESSION: No acute bony abnormality is evident. Internally fixed old healed fractures around the distal humerus, proximal radius, and proximal ulna with fixating plates and screws in place. Radial head replacement implant in place. Osteopenia. Degenerative osseous changes. /[place] DICTATED BY: KAMILA LUX Jr., MD DATE: 03/03/25636 ELECTRONICALLY SIGNED BY: KAMILA LUX Jr., MD DATE: 03/03/25636 REASON: FALL ORDERING PHYSICIAN: ARVIN HARRY MD PROCEDURE: FORARMR - FOREARM 2VWS RT EXAM: CR Right Forearm, 2 views. CLINICAL HISTORY: Fall. COMPARISON: None provided. FINDINGS: No acute fracture or aggressive appearing osseous lesion. Internally fixed old healed fractures around the distal humerus, proximal ulna, and proximal and distal radius with fixating plates and screws in place. Radial head replacement implant in place. Mild osteopenia. Osteoarthritis around the elbow and wrist joints. Mild diffuse soft tissue swelling. IMPRESSION: No acute bony abnormality is evident. Internally fixed old healed fractures around the distal humerus, proximal ulna, and proximal and distal radius with fixating plates and screws in place. Radial head replacement implant in place. Osteopenia. Degenerative osseous changes. /[place] DICTATED BY: KAMILA LUX Jr., MD DATE: 03/03/25638 ELECTRONICALLY SIGNED BY: KAMILA LUX Jr., MD DATE: 03/03/25638 REASON: FALL ORDERING PHYSICIAN: ARVIN HARRY MD PROCEDURE: WRST 3V RT - WRIST COMP 3+VWS RT EXAM: CR Right Wrist, 3 views CLINICAL HISTORY: Fall. COMPARISON: None provided. FINDINGS: No acute fracture or aggressive appearing osseous lesion. Internally fixed old healed distal radial fracture with fixating plate and screw in place. The carpal bones demonstrate normal alignment. Mild osteopenia. Mild to moderate osteoarthritis, most pronounced in the first carpometacarpal joint. The soft tissues are unremarkable. IMPRESSION: No acute fracture. Internally fixed old healed distal radial fracture with fixating plate and screw in place. Osteopenia. Degenerative changes. /[place] DICTATED BY: KAMILA LUX Jr., MD DATE: 03/03/25633 ELECTRONICALLY SIGNED BY: KAMILA LUX Jr., MD DATE: 03/03/25633 ED Course ED Course Orders Procedure Category Date Status Time Forearm 2vws Rt RAD 03/03/25 Resulted 04:28 Elbow Comp 3+Vws Rt RAD 03/03/25 Resulted 04:28 Wrist Comp 3+Vws Rt RAD 03/03/25 Resulted 04:28 Ketorolac PHA 03/03/25 Complete Tromethamine 30mg/Ml 05:00 Cbc With Differential LAB 03/03/25 Complete 04:55 Basic Metabolic Panel LAB 03/03/25 Complete 04:55 Current Medications Medications (Trade) Dose Ordered Sig/Jessica Route PRN Reason Start Time Stop Time Status Last Admin Dose Admin Ketorolac Tromethamine (toRADol) 30 mg ONCE ONCE IM 03/03/25 05:00 03/03/25 05:01 DC 03/03/25 05:53 Vital Signs Date Time Temp Pulse Resp B/P (MAP) Pulse Ox O2 Delivery O2 Flow Rate FiO2 03/03/25 06:41 98.2 80 18 135/75 97 Room Air* 0 21 03/03/25 04:11 98.1 85 20 127/78 96 Room Air Medical Decision Making MDM Differential diagnosis: Contusion, fracture of radio ulnar bones, dislodgement of the hardware, tear of the ligaments This is a 74-year-old female who presented to the emergency room complaining of right arm pain after she fell at home. Patient stated that she tripped on something and basically fell on heel the right forearm lateral aspect. She has had surgery in the past and she wanted to make sure that there was no recurrent fracture. Patient did not hit her head. No loss of consciousness she is not on any blood thinners. No lacerations or ecchymosis the pain is mostly on the extensor aspect of the right forearm all the way from elbow to the wrist area. Patient is able to move her arm in all directions at her baseline Temperature 98 pulse 85 respirations 20 blood pressure 127/78 with a pulse oximetry of 96% on room air 5:50 a.m.- I went over the x-ray of the right wrist forearm and elbow which did not show any new fractures or dislocations. Her hardware is in place. She was extremely relieved. Recommended to continue OTC pain medication Rationale: Tests considered and ordered secondary to shared decision making include: X-rays Previous outside records reviewed: Old ER visits. Risk of complication and/or morbidity or mortality of patient management: None Medications-Per medication reconciliation Need for hospitalization: Patient does not meet criteria for hospitalization. Need for emergency major/minor surgery: No There are no social concerns with this patient. Prescription drug management Prescriptions will include symptomatic care Patient's prior external medical records from other ER visits were reviewed by me as indicated. Prior testing and results from previous visits were reviewed. Prior tests were taken into account with medical decision making and resource utilization, independent historian/historians were used to obtain complete medical history. I independently interpreted the test that were performed, results were reviewed by me and considered findings on radiology if ordered. Medical management and examination interpretation discussions were had by me with other qualified healthcare professionals as indicated for the patient's care. Problem List Problem List: (1) Right arm pain (2) Fall (3) Contusion of right forearm DX & DISP Disposition: Discharge Departure Impression: Primary Impression: Right arm pain Additional Impressions: Fall, Contusion of right forearm Condition: Stable Additional Instructions: Patient and the caregiver have been informed of all the diagnostic tests and the imaging conducted during the today's visit to the emergency room and has verbalized understanding of the results I have personally reviewed and interpreted all diagnostic exams performed here in the ER today as well as the vital signs documented by the nursing staff. The patient is now being discharged to home and should follow up with the primary care physician or the specialist as directed by the ER staff. Referrals: DAGOBERTO CASTELAN MD (PCP) ARVIN HARRY MD Mar 03, 2025 04:56
--- NOTE | 2025-03-03 05:35 | HMCIMG ---
EXAM: CR Right Wrist, 3 views CLINICAL HISTORY: Fall. COMPARISON: None provided. FINDINGS: No acute fracture or aggressive appearing osseous lesion. Internally fixed old healed distal radial fracture with fixating plate and screw in place. The carpal bones demonstrate normal alignment. Mild osteopenia. Mild to moderate osteoarthritis, most pronounced in the first carpometacarpal joint. The soft tissues are unremarkable. IMPRESSION: No acute fracture. Internally fixed old healed distal radial fracture with fixating plate and screw in place. Osteopenia. Degenerative changes. /[place]
--- NOTE | 2025-03-03 05:38 | HMCIMG ---
EXAM: CR Right Elbow, 3 views CLINICAL HISTORY: Fall. COMPARISON: None provided. FINDINGS: No acute fracture or aggressive appearing osseous lesion. Internally fixed old healed fractures around the distal humerus, proximal radius, and proximal ulna with fixating plates and screws in place. Radial head replacement implant in place. Mild osteopenia. Moderate osteoarthritis. Mild diffuse soft tissue swelling. No joint effusion is evident. IMPRESSION: No acute bony abnormality is evident. Internally fixed old healed fractures around the distal humerus, proximal radius, and proximal ulna with fixating plates and screws in place. Radial head replacement implant in place. Osteopenia. Degenerative osseous changes. /[place]
--- NOTE | 2025-03-03 05:40 | HMCIMG ---
EXAM: CR Right Forearm, 2 views. CLINICAL HISTORY: Fall. COMPARISON: None provided. FINDINGS: No acute fracture or aggressive appearing osseous lesion. Internally fixed old healed fractures around the distal humerus, proximal ulna, and proximal and distal radius with fixating plates and screws in place. Radial head replacement implant in place. Mild osteopenia. Osteoarthritis around the elbow and wrist joints. Mild diffuse soft tissue swelling. IMPRESSION: No acute bony abnormality is evident. Internally fixed old healed fractures around the distal humerus, proximal ulna, and proximal and distal radius with fixating plates and screws in place. Radial head replacement implant in place. Osteopenia. Degenerative osseous changes. /[place]
[2025-03-03 06:08] LABS: IMMATURE GRANULOCYTE ABSOLUTE 0.06 K/uL (0-1); NUCLEATED RED BLOOD CELLS 0.0 % (0.0-0.19); PLATELET COUNT (AUTO) 248 K/uL (130-400); RED BLOOD CELL COUNT(AUTO) 3.79 MIL/uL (4.00-5.50); RED CELL DISTRIBUTION WIDTH 14.1 % (11.0-15.5); WHITE BLOOD COUNT (AUTO) 9.3 K/uL (4.8-10.8)
[2025-03-03 06:17] LABS: CREATININE 0.5 mg/dL (0.5-1.0); GLOMERULAR FILTR. RATE CALC 98.0 mL/min (>90); GLUCOSE,RANDOM 111.0 mg/dL (70-105); SODIUM SERUM 141.0 mmol/L (136-145); UREA NITROGEN, BLOOD 16.0 mg/dL (7-18)
[2025-03-03 06:41] VITALS: BP 135/75; PULSE 80; RESP 18; TEMP 98.2; O2SAT 97
== END 2025-03-03 06:52 | disposition home or self-care (01) ==
LOC: EDH 04:08
DX: S50.11XA Contusion of right forearm, initial encounter (principal); R60.0 Localized edema; Z88.8 Allergy status to other drugs, medicaments and biological substances; Z79.899 Other long term (current) drug therapy; W18.39XA Other fall on same level, initial encounter; Y93.89 Activity, other specified; Y92.89 Other specified places as the place of occurrence of the external cause; Y99.8 Other external cause status
CPT/HCPCS: 99284; 80048; 85025; 36415; 73080; 73090; 73110; 96372; J1885